=== PATIENT | male | born 1985 | race Caucasian/White ===

== ENCOUNTER 2016-11-23 17:51 | Emergency (ER) | payer SELFPAY ==
[~2016-11-23] VITALS: Ht 175.3 cm; Wt 98.0 kg
[2016-11-23] MEDS ORDERED: KEFLEX500 MG PO (21:17)
[2016-11-23 21:38] VITALS: BP 122/87
== END 2016-11-23 21:40 | disposition home or self-care (01) ==
LOC: EME 17:51
DX: S61.210A Laceration without foreign body of right index finger without damage to nail, initial encounter (principal); W45.0XXA Nail entering through skin, initial encounter
CPT/HCPCS: 73140; 99281; 99284; S0020